=== PATIENT | male | born 1985 | race Caucasian/White ===

== ENCOUNTER 2017-09-18 12:48 | Inpatient (IN) | payer OTHER ==
[2017-09-18 13:28] VITALS: BMI 23.3
--- NOTE | 2017-09-18 14:30 | HP ---
COWS - Scale Resting Pulse: 0= [place] 80 or Below Sweatin= Chills/Flushing Restless Observation: 0= Sits Still Pupil Size: 0= Normal to Room Light Bone or Joint Aches: 1= Mild Discomfort Runny Nose/ Eye Tearin= Nasal Congestion GI Upset > 30mins: 1= Stomach Cramp Tremor Observation: 1= Tremor [place], Not Seen Yawning Observation: 1= 1-2x During Session Anxiety or Irritability: 1=Feels Anxious/Irritable Goose Flesh Skin: 0=Smooth Skin COWS Score: 7 CIWA Score - CIWA Score Nausea/Vomitin-Mild Nausea/No Vomiting Muscle Tremors: 4-Moderate,w/Arms Extend Anxiety: 4-Mod. Anxious/Guarded Agitation: 1-Slight > Activity Paroxysmal Sweats: 1-Minimal Palms Moist Orientation: 0-Oriented Tacttile Disturbances: 1-Very Mild Itch/Numbness Auditory Disturbances: 1-Very Mild Visual Disturbances: 1-Very Mild Sensitivity Headache: 3-Moderate CIWA-Ar Total Score: 17 Admission ROS BHS - HPI Chief Complaint: I'm done, I need this so bad, I need help Allergies/Adverse Reactions: Allergies Allergy/AdvReac Type Severity Reaction Status Date / Time No Known Allergies Allergy Verified 02/18/16 15:22 History of Present Illness: 31 yo gentleman here for detox from heroin, xanax, alchol - also using cocaine. Last detox 3 months ago in [facility] - last time here for detox January 2016 - never on methadone or suboxone ([facility] checked). No seizures, no overdose history. Exam Limitations: Clinical Condition - Ebola screening Have you traveled outside of the country in the last 21 days: No Have you had contact with anyone from an Ebola affected area: No Have you been sick,other than usual withdrawal symptoms: No Do you have a fever: No - Review of Systems Constitutional: Chills, Loss of Appetite, Malaise, Changes in sleep, Unintentional Wgt. Loss EENT: reports: Blurred Vision, Nose Congestion Respiratory: reports: No Symptoms reported Cardiac: reports: No Symptoms Reported GI: reports: Poor Appetite : reports: Frequency Musculoskeletal: reports: Back Pain, Muscle Pain Neuro: reports: Headache Endocrine: reports: No Symptoms Reported Hematology: reports: No Symptoms Reported Psychiatric: reports: Judgement Intact, Mood/Affect Appropiate, Orientated x3, Anxious Other Systems: Reviewed and Negative Patient History - Patient Medical History Hx Anemia: No Hx Asthma: No Hx Chronic Obstructive Pulmonary Disease (COPD): No Hx Cancer: No Hx Cardiac Disorders: No Hx Congestive Heart Failure: No Hx Hypertension: No Hx Hypercholesterolemia: No Hx Pacemaker: No HX Cerebrovascular Accident: No Hx Seizures: No Hx Dementia: No Hx Diabetes: No Hx Gastrointestinal Disorders: No Hx Liver Disease: No Hx Genitourinary Disorders: No Hx Sexually Transmitted Disorders: No Hx Renal Disease (ESRD): No Hx Thyroid Disease: No Hx Human Immunodeficiency Virus (HIV): No (2014 NEGATIVE) Hx Hepatitis C: Yes (2014 TREATED X 8 WEEKS, ) Hx Depression: No Hx Suicide Attempt: No Hx Bipolar Disorder: No Hx Schizophrenia: No - Patient Surgical History Past Surgical History: Yes Hx Neurologic Surgery: No Hx Cataract Extraction: No Hx Cardiac Surgery: No Hx Lung Surgery: No Hx Breast Surgery: No Hx Breast Biopsy: No Hx Abdominal Surgery: No Hx Appendectomy: No Hx Cholecystectomy: No Hx Genitourinary Surgery: No Hx Orthopedic Surgery: No Other Surgical History: partial amputation, left middle finger in 08/2015 Anesthesia Reaction: No - PPD History Previous Implant?: Yes Documented Results: Negative w/o proof Date: 02/20/16 PPD to be Administered?: Yes - Reproductive History Patient is a Female of Child Bearing Age (11 -55 yrs old): No (male) - Smoking Cessation Smoking history: Current every day smoker Have you smoked in the past 12 months: Yes Aproximately how many cigarettes per day: 20 Hx Chewing Tobacco Use: No Initiated information on smoking cessation: Yes 'Breaking Loose' booklet given: 09/18/17 (give on floor) - Substance & Tx. History Hx Alcohol Use: Yes Hx Substance Use: Yes Substance Use Type: Alcohol, Cocaine, Heroin Hx Substance Use Treatment: Yes - Substances Abused Alprazolam (Xanax) Route: Oral Frequency: Daily Amount used: 2mg Age of first use: 16 Date of Last Use: 09/17/17 Heroin Route: Injection Frequency: Daily Amount used: three bundles Age of first use: 28 Date of Last Use: 09/18/17 Alcohol Route: Oral Frequency: Daily Amount used: six pack 24oz beer Age of first use: 15 Date of Last Use: 09/17/17 Cocaine Route: Injection Frequency: Daily Amount used: 3 bags Age of first use: 15 Date of Last Use: 09/18/17 Family Disease History - Family Disease History Family Disease History: Other: Father (living, CRACK, etoh), Mother (living), Brother (one - healthy), Son (one - healthy), Daughter (one - healthy) Admission Physical Exam [facility] - Vital Signs Vital Signs: Vital Signs - 24 hr 09/18/17 12:57 Temperature 97.1 F L Pulse Rate 67 Respiratory 20 Rate Blood Pressure 104/65 - Physical General Appearance: Yes: Nourished, Appropriately Dressed, Mild Distress, Anxious HEENTM: Yes: Hearing grossly Normal, Normal ENT Inspection, Normocephalic, Normal Voice, Pharynx Normal Respiratory: Yes: Normal Breath Sounds, No Respiratory Distress Neck: Yes: No masses,lesions,Nodules, Supple Breast: Yes: Breast Exam Deferred Cardiology: Yes: Regular Rhythm, Regular Rate Abdominal: Yes: Flat Genitourinary: Yes: Frequency Back: Yes: Normal Inspection Musculoskeletal: Yes: full range of Motion, Gait Steady Extremities: Yes: Normal Inspection, Non-Tender Neurological: Yes: Fully Oriented, Normal Mood/Affect, Normal Response Integumentary: Yes: Normal Color, Warm, Track Tena (left fore-arm with erythematous area - flat, nontender, no fluctuance - states he 'missed') Lymphatic: Yes: Within Normal Limits Cleared for Admission [facility] - Detox or Rehab [facility] Level of Care: Medically Managed Detox Regimen/Protocol: Methadone/Valium [facility] Breath Alcohol Content Breath Alcohol Content: 0 Urine Drug Screen - Results Drug Screen Negative: No Urine Drug Screen Results: CHARAN-Cocaine, OPI-Opiates, MDMA-Ecstasy, BZO- Benzodiazepines, MTD-Methadone
[2017-09-18] MEDS ORDERED: NICOTINE POLACRILEX 4 MG GUM BUC PRN (14:35)
[2017-09-18] MEDS ORDERED: guaiFENesin/D-METHORPHAN HB 10 ML UNIT-DOSE CUPS PO PRN (14:35)
[2017-09-18] MEDS ORDERED: MAGNESIUM CITRATE 300 ML BOTTLE PO PRN (14:35)
[2017-09-18] MEDS ORDERED: IBUPROFEN 400 MG TABLET (FP) PO PRN (14:35)
[2017-09-18] MEDS ORDERED: ACETAMINOPHEN 325 MG TABLET (FP) PO PRN (14:35)
[2017-09-18] MEDS ORDERED: P-EPHED 60MG/TRIPROLIDI 2.5MG TABLET PO PRN (14:35)
[2017-09-18] MEDS ORDERED: LOPERAMIDE HCL 2 MG CAPSULE PO PRN (14:35)
[2017-09-18] MEDS ORDERED: MAGNESIUM HYDROX 2400MG/30ML ORAL SUSPENSION 30 ML CUP PO PRN (14:35)
[2017-09-18] MEDS ORDERED: MENTHOL/PHENOL 1 EACH UD MM PRN (14:35)
[2017-09-18] MEDS ORDERED: METHADONE HCL 10 MG TABLET (FOR DETOX USE ONLY) PO ONE ×2 (15:15→23:00)
[2017-09-18] MEDS ORDERED: diazePAM 5 MG TABLET PO ONE (15:15)
[2017-09-18] MEDS: NICOTINE 21 MG/24 HOURS TOPICAL PATCH TD SCH (16:07)
[2017-09-18 19:47] LABS: URINE APPEARANCE CLEAR; URINE BILIRUBIN NEGATIVE (NEGATIVE); URINE BLOOD NEGATIVE (NEGATIVE); URINE COLOR YELLOW; URINE GLUCOSE (UA) NEGATIVE (NEGATIVE); URINE KETONE NEGATIVE (NEGATIVE); URINE NITRITE NEGATIVE (NEGATIVE); URINE PROTEIN NEGATIVE (NEGATIVE); URINE UROBILINOGEN NEGATIVE mg/dL (0.2-1.0)
[2017-09-18 21:48] LABS: URINE LEUK ESTERASE Negative (NEGATIVE)
[2017-09-18] MEDS: diazePAM 5 MG TABLET PO SCH (22:11)
[2017-09-18] MEDS: THIAMINE HCL 100 MG TABLET (FP) PO SCH (22:11)
[2017-09-19] MEDS: diazePAM 5 MG TABLET PO PRN ×3 (03:41→17:12)
[2017-09-19] MEDS: MAG HYDROX/AL HYDROX/SIMETH 30 ML UNIT-DOSE CUP PO PRN ×2 (03:43→17:14)
[2017-09-19] MEDS: diazePAM 5 MG TABLET PO SCH ×3 (06:16→22:09)
[2017-09-19] MEDS ORDERED: ONDANSETRON *ODT* 4 MG TABLET SL ONE (09:37)
--- NOTE | 2017-09-19 09:43 | PN ---
BHS COWS - Scale Resting Pulse: 1= [place] 81-100 Sweatin=Flushed/Facial Moisture Restless Observation: 1= Difficult to Sit Still Pupil Size: 0= Normal to Room Light Bone or Joint Aches: 2= Severe Diffuse Aches Runny Nose/ Eye Tearin= Runny Nose/Eyes GI Upset > 30mins: 2= Nausea/Diarrhea Tremor Observation of Outstretched Hands: 2= Slight Tremor Visible Yawning Observation: 1= 1-2x During Session Anxiety or Irritability: 2=Irritable/Anxious Goose Flesh Skin: 0=Smooth Skin COWS Score: 15 BHS Progress Note (SOAP) Subjective: Anxiety,nausea,sweating,interrupted sleep,restless. Objective: 09/19/17 09:42 Vital Signs - 8 hr 09/19/17 09/19/17 06:00 09:35 Temperature 97.9 F 97.1 F L Pulse Rate 70 91 H Respiratory 18 18 Rate Blood Pressure 103/62 111/74 Laboratory Tests 09/18/17 16:00 Urine Color Yellow Urine Appearance Clear Urine pH 5.0 Ur Specific [place] 1.029 Urine Protein Negative Urine Glucose (UA) Negative Urine Ketones Negative Urine Blood Negative Urine Nitrite Negative Urine Bilirubin Negative Urine Urobilinogen Negative Ur Leukocyte Esterase Negative Assessment: 09/19/17 09:42 Withdrawal sx. Plan: Continue detox Zofran
[2017-09-19] MEDS ORDERED: ONDANSETRON *ODT* 4 MG TABLET SL PRN (09:47)
[2017-09-19] MEDS ORDERED: METHADONE HCL 10 MG TABLET (FOR DETOX USE ONLY) PO SCH (10:00)
[2017-09-19 10:28] LABS: MCH 26.2 pg (25.7-33.7); MCHC 32.6 g/dl (32.0-35.9); MEAN CELL VOLUME 80.1 fl (80-96); MEAN PLT VOLUME 9.2 fl (7.5-11.1); PLATELET COUNT 177 K/MM3 (134-434)
[2017-09-19] MEDS: PRENATAL VITAMINS W/ FOLIC ACID TABLET (FP) PO SCH (10:39)
[2017-09-19] MEDS: NICOTINE 21 MG/24 HOURS TOPICAL PATCH TD SCH (10:39)
[2017-09-19 10:41] LABS: ALBUMIN 3.4 g/dl (3.4-5.0); ANION GAP 6 (8-16); CALCIUM 8.6 mg/dL (8.5-10.1); CO2 28 mmol/L (21-32); GLUCOSE,RANDOM 86 mg/dL (74-106)
[2017-09-19 10:44] LABS: ALK PHOS 73 U/L (45-117); BILIRUBIN,TOTAL 0.6 mg/dL (0.2-1.0); SGOT/AST 72 U/L (15-37); SGPT/ALT 119 U/L (12-78); TOT PROT 7.2 g/dl (6.4-8.2)
[2017-09-19] MEDS: hydrOXYzine PAMOATE 50 MG CAPSULE (FP) PO PRN (22:09)
[2017-09-19] MEDS: THIAMINE HCL 100 MG TABLET (FP) PO SCH (22:09)
--- NOTE | 2017-09-20 09:41 | EKG ---
Test Reason : Blood Pressure : / mmHG Vent. Rate : 061 BPM Atrial Rate : 061 BPM P-R Int : 128 ms QRS Dur : 084 ms QT Int : 414 ms P-R-T Axes : 044 075 040 degrees QTc Int : 416 ms NORMAL SINUS RHYTHM WITH SINUS ARRHYTHMIA NORMAL ECG NO PREVIOUS ECGS AVAILABLE Confirmed by EB VO, KIN ([id number]) on 09/20/2017 9:41:22 AM Referred By: Confirmed By:KIN PARSON MD
[2017-09-20] MEDS ORDERED: METHADONE HCL 5 MG TABLET (FOR DETOX USE ONLY) PO SCH (10:00)
[2017-09-20] MEDS: PRENATAL VITAMINS W/ FOLIC ACID TABLET (FP) PO SCH (10:22)
[2017-09-20] MEDS: diazePAM 5 MG TABLET PO SCH ×2 (10:22→22:09)
[2017-09-20] MEDS: NICOTINE 21 MG/24 HOURS TOPICAL PATCH TD SCH (10:23)
--- NOTE | 2017-09-20 10:34 | PN ---
[facility] CIWA - CIWA Score Nausea/Vomitin Muscle Tremors: 3 Anxiety: 3 Agitation: 2 Paroxysmal Sweats: 1-Minimal Palms Moist Orientation: 1-Uncertain about Date Tacttile Disturbances: 1-Very Mild Itch/Numbness Auditory Disturbances: 1-Very Mild Visual Disturbances: 0-None Headache: 2-Mild CIWA-Ar Total Score: 17 BHS COWS - Scale Resting Pulse: 2= [place] 101-120 Sweatin= Chills/Flushing Restless Observation: 3= Extraneous Movement Pupil Size: 1= Pupils >than Normal Bone or Joint Aches: 2= Severe Diffuse Aches Runny Nose/ Eye Tearin= Runny Nose/Eyes GI Upset > 30mins: 2= Nausea/Diarrhea Tremor Observation of Outstretched Hands: 2= Slight Tremor Visible Yawning Observation: 1= 1-2x During Session Anxiety or Irritability: 2=Irritable/Anxious Goose Flesh Skin: 0=Smooth Skin COWS Score: 18 [facility] Progress Note (SOAP) Subjective: alert,irritable,anxious,interrupted sleep,tremor,pain in the body and back Objective: 09/20/17 10:31 Vital Signs Temperature 96.7 F L 09/20/17 06:06 Pulse Rate 64 09/20/17 06:06 Respiratory Rate 16 09/20/17 06:06 Blood Pressure 117/62 09/20/17 06:06 O2 Sat by Pulse Oximetry (%) ekg nsr with sinus arrhythmia Laboratory Last Values WBC 6.0 K/mm3 (4.0-10.0) D 09/19/17 07:15 RBC 4.79 M/mm3 (4.00-5.60) 09/19/17 07:15 Hgb 12.5 GM/dL (11.7-16.9) 09/19/17 07:15 Hct 38.3 % (35.4-49) 09/19/17 07:15 MCV 80.1 fl (80-96) 09/19/17 07:15 MCH 26.2 pg (25.7-33.7) 09/19/17 07:15 MCHC 32.6 g/dl (32.0-35.9) 09/19/17 07:15 RDW 15.0 % (11.9-15.9) D 09/19/17 07:15 Plt Count 177 K/MM3 (134-434) D 09/19/17 07:15 MPV 9.2 fl (7.5-11.1) 09/19/17 07:15 Sodium 139 mmol/L (136-145) 09/19/17 07:15 Potassium 4.1 mmol/L (3.5-5.1) 09/19/17 07:15 Chloride 105 mmol/L (98-107) 09/19/17 07:15 Carbon Dioxide 28 mmol/L (21-32) 09/19/17 07:15 Anion Gap 6 (8-16) L 09/19/17 07:15 BUN 17 mg/dL (7-18) 09/19/17 07:15 Creatinine 1.0 mg/dL (0.7-1.3) 09/19/17 07:15 Creat Clearance w eGFR > 60 (>60) 09/19/17 07:15 Random Glucose 86 mg/dL (74-106) 09/19/17 07:15 Calcium 8.6 mg/dL (8.5-10.1) 09/19/17 07:15 Total Bilirubin 0.6 mg/dL (0.2-1.0) D 09/19/17 07:15 AST 72 U/L (15-37) H D 09/19/17 07:15 ALT 119 U/L (12-78) H D 09/19/17 07:15 Alkaline Phosphatase 73 U/L (45-117) 09/19/17 07:15 Total Protein 7.2 g/dl (6.4-8.2) 09/19/17 07:15 Albumin 3.4 g/dl (3.4-5.0) 09/19/17 07:15 Urine Color Yellow 09/18/17 16:00 Urine Appearance Clear 09/18/17 16:00 Urine pH 5.0 (5.0-8.0) 09/18/17 16:00 Ur Specific [place] 1.029 (1.001-1.035) 09/18/17 16:00 Urine Protein Negative (NEGATIVE) 09/18/17 16:00 Urine Glucose (UA) Negative (NEGATIVE) 09/18/17 16:00 Urine Ketones Negative (NEGATIVE) 09/18/17 16:00 Urine Blood Negative (NEGATIVE) 09/18/17 16:00 Urine Nitrite Negative (NEGATIVE) 09/18/17 16:00 Urine Bilirubin Negative (NEGATIVE) 09/18/17 16:00 Urine Urobilinogen Negative mg/dL (0.2-1.0) 09/18/17 16:00 Ur Leukocyte Esterase Negative (NEGATIVE) 09/18/17 16:00 RPR Titer Nonreactive (NONREACTIVE) 09/19/17 07:15 Assessment: 09/20/17 10:33 withdrawal symptom Plan: continue detox,d/c tylenol due to elevation of ast,alt
[2017-09-20] MEDS: diazePAM 5 MG TABLET PO PRN ×2 (14:10→18:08)
--- NOTE | 2017-09-20 14:13 | CONSULT ---
[facility] Psychiatric Consult - Data Date of interview: 09/20/17 Admission source: [facility] Identifying data: This is 31 years old male with no psychiatric hospitalization history intoxicated with: Alcohol, Cocaine, Xanax, Heroin and Nicotine Substance Abuse History: - Smoking Cessation. Smoking history: Current every day smoker. Have you smoked in the past 12 months: Yes. Aproximately how many cigarettes per day: 20. Hx Chewing Tobacco Use: No. Initiated information on smoking cessation: Yes. 'Breaking Loose' booklet given: 09/18/17 (give on floor ). - Substance & Tx. History. Hx Alcohol Use: Yes. Hx Substance Use: Yes. Substance Use Type: Alcohol, Cocaine, Heroin. Hx Substance Use Treatment: Yes. - Substances Abused. Alprazolam (Xanax). Route: Oral. Frequency: Daily. Amount used: 2mg. Age of first use: 16. Date of Last Use: 09/17/17. Heroin. Route: Injection. Frequency: Daily. Amount used: three bundles. Age of first use: 28. Date of Last Use: 09/18/17. Alcohol. Route: Oral. Frequency: Daily. Amount used: six pack 24oz beer. Age of first use: 15. Date of Last Use: 09/17/17. Cocaine. Route: Injection. Frequency: Daily. Amount used: 3 bags. Age of first use: 15. Date of Last Use: 09/18/17 Medical History: Denies ish significant medical issues. HepC+ Psychiatric History: Denies past psychiatric history Physical/Sexual Abuse/Trauma History: Denies Additional Comment: Observation. Detox unit care protocol Mental Status Exam - Mental Status Exam Alert and Oriented to: Person Cognitive Function: Fair Patient Appearance: Unkempt Mood: Euthymic Affect: Inappropriate Patient Behavior: Sedated Speech Pattern: Delayed Voice Loudness: Mildly Soft/Quiet Thought Process: Goal Oriented Thought Disorder: Being Controlled Hallucinations: Denies Suicidal Ideation: Denies Homicidal Ideation: Denies Insight/Judgement: Fair Sleep: Poorly Appetite: Weight loss Muscle strength/Tone: Mild Hypotonicity Gait/Station: Normal Additional Comments: Observation. Detox unit care protocol Psychiatric Findings - Problem List ([place] 1, 2,3) (1) Drug-induced mood disorder Current Visit: Yes Status: Acute (2) Opioid dependence with withdrawal Current Visit: Yes Status: Acute (3) Sedative, hypnotic or anxiolytic dependence with withdrawal, uncomplicated Current Visit: Yes Status: Acute (4) Alcohol dependence with uncomplicated withdrawal Current Visit: Yes Status: Chronic (5) Heroin dependence Current Visit: Yes Status: Chronic (6) Xanax use disorder, moderate, dependence Current Visit: Yes Status: Chronic (7) Cocaine dependence Current Visit: No Status: Chronic Qualifiers: Substance use status: uncomplicated Qualified Code(s): F14.20 - Cocaine dependence, uncomplicated (8) Nicotine dependence Current Visit: No Status: Chronic Qualifiers: Nicotine product type: cigarettes Substance use status: uncomplicated Qualified Code(s): F17.210 - Nicotine dependence, cigarettes, uncomplicated - Initial Treatment Plan Initial Treatment Plan: Observation. Detox unit care protocol
[2017-09-20] MEDS: hydrOXYzine PAMOATE 50 MG CAPSULE (FP) PO PRN (22:09)
[2017-09-20] MEDS: THIAMINE HCL 100 MG TABLET (FP) PO SCH (22:09)
[2017-09-21 06:29] VITALS: BP 92/50; PULSE 70; TEMP 98.1
[2017-09-21] MEDS: diazePAM 5 MG TABLET PO PRN (06:38)
--- NOTE | 2017-09-21 08:35 | PN ---
BHS Progress Note (SOAP) Subjective: alert,irritable,anxious,interrupted sleep,pain in the body Objective: 09/21/17 08:34 Vital Signs Temperature 98.1 F 09/21/17 06:28 Pulse Rate 70 09/21/17 06:28 Respiratory Rate 18 09/21/17 06:28 Blood Pressure 92/50 09/21/17 06:28 O2 Sat by Pulse Oximetry (%) 09/21/17 08:34 Laboratory Last Values WBC 6.0 K/mm3 (4.0-10.0) D 09/19/17 07:15 RBC 4.79 M/mm3 (4.00-5.60) 09/19/17 07:15 Hgb 12.5 GM/dL (11.7-16.9) 09/19/17 07:15 Hct 38.3 % (35.4-49) 09/19/17 07:15 MCV 80.1 fl (80-96) 09/19/17 07:15 MCH 26.2 pg (25.7-33.7) 09/19/17 07:15 MCHC 32.6 g/dl (32.0-35.9) 09/19/17 07:15 RDW 15.0 % (11.9-15.9) D 09/19/17 07:15 Plt Count 177 K/MM3 (134-434) D 09/19/17 07:15 MPV 9.2 fl (7.5-11.1) 09/19/17 07:15 Sodium 139 mmol/L (136-145) 09/19/17 07:15 Potassium 4.1 mmol/L (3.5-5.1) 09/19/17 07:15 Chloride 105 mmol/L (98-107) 09/19/17 07:15 Carbon Dioxide 28 mmol/L (21-32) 09/19/17 07:15 Anion Gap 6 (8-16) L 09/19/17 07:15 BUN 17 mg/dL (7-18) 09/19/17 07:15 Creatinine 1.0 mg/dL (0.7-1.3) 09/19/17 07:15 Creat Clearance w eGFR > 60 (>60) 09/19/17 07:15 Random Glucose 86 mg/dL (74-106) 09/19/17 07:15 Calcium 8.6 mg/dL (8.5-10.1) 09/19/17 07:15 Total Bilirubin 0.6 mg/dL (0.2-1.0) D 09/19/17 07:15 AST 72 U/L (15-37) H D 09/19/17 07:15 ALT 119 U/L (12-78) H D 09/19/17 07:15 Alkaline Phosphatase 73 U/L (45-117) 09/19/17 07:15 Total Protein 7.2 g/dl (6.4-8.2) 09/19/17 07:15 Albumin 3.4 g/dl (3.4-5.0) 09/19/17 07:15 Urine Color Yellow 09/18/17 16:00 Urine Appearance Clear 09/18/17 16:00 Urine pH 5.0 (5.0-8.0) 09/18/17 16:00 Ur Specific [place] 1.029 (1.001-1.035) 09/18/17 16:00 Urine Protein Negative (NEGATIVE) 09/18/17 16:00 Urine Glucose (UA) Negative (NEGATIVE) 09/18/17 16:00 Urine Ketones Negative (NEGATIVE) 09/18/17 16:00 Urine Blood Negative (NEGATIVE) 09/18/17 16:00 Urine Nitrite Negative (NEGATIVE) 09/18/17 16:00 Urine Bilirubin Negative (NEGATIVE) 09/18/17 16:00 Urine Urobilinogen Negative mg/dL (0.2-1.0) 09/18/17 16:00 Ur Leukocyte Esterase Negative (NEGATIVE) 09/18/17 16:00 RPR Titer Nonreactive (NONREACTIVE) 09/19/17 07:15 Assessment: 09/21/17 08:35 withdrawal symptom Plan: continue detox
--- NOTE | 2017-09-21 08:37 | PN ---
S Progress Note Note: patient did not want to complete treatment,signed release ama,seen by counselor
--- NOTE | 2017-09-21 08:38 | DS ---
[facility] Detox Discharge Summary Admission Date: 09/18/17 Discharge Date: 09/21/17 - History Present History: Alcohol Dependence, Cocaine Dependence, Opioid Dependence, Sedative Dependence Additional Comments: patient did not want to complete treatment,signed release ama,seen by counselor, did not want to wait - Physical Exam Results Vital Signs: Vital Signs Temperature 98.1 F 09/21/17 06:28 Pulse Rate 70 09/21/17 06:28 Respiratory Rate 18 09/21/17 06:28 Blood Pressure 92/50 09/21/17 06:28 O2 Sat by Pulse Oximetry (%) Pertinent Admission Physical Exam Findings: withdrawal symptom - Medication Discharge Medications: Ambulatory Orders NK [No Known Home Medication] 02/18/16 - Diagnosis (1) Opioid dependence with withdrawal Current Visit: Yes Status: Acute (2) Sedative, hypnotic or anxiolytic dependence with withdrawal, uncomplicated Current Visit: Yes Status: Acute (3) Alcohol dependence with uncomplicated withdrawal Current Visit: Yes Status: Chronic (4) Cocaine dependence Current Visit: No Status: Chronic Qualifiers: Substance use status: uncomplicated Qualified Code(s): F14.20 - Cocaine dependence, uncomplicated (5) Drug-induced mood disorder Current Visit: Yes Status: Acute - AMA Did Patient Leave Against Medical Advice: Yes
[2017-09-22] MEDS ORDERED: diazePAM 5 MG TABLET PO SCH (10:00)
[2017-09-22] MEDS ORDERED: METHADONE HCL 10 MG TABLET (FOR DETOX USE ONLY) PO SCH (10:00)
[2017-09-23] MEDS ORDERED: METHADONE HCL 5 MG TABLET (FOR DETOX USE ONLY) PO SCH (06:00)
== END 2017-09-21 09:00 | disposition left against medical advice (07) | DRG 770 ==
LOC: YASAS 12:48 → Y6N 14:56
PROVIDERS: ADMIT Internal Medicine; ATTEND Internal Medicine
PROC: HZ2ZZZZ Detoxification Services for Substance Abuse Treatment (ICD-10-PCS; principal; 2017-09-18)
DX: F11.23 Opioid dependence with withdrawal (principal); F10.230 Alcohol dependence with withdrawal, uncomplicated; F14.20 Cocaine dependence, uncomplicated; F19.24 Other psychoactive substance dependence with psychoactive substance-induced mood disorder; F17.210 Nicotine dependence, cigarettes, uncomplicated; Z59.0 Homelessness
CPT/HCPCS: 36415; 80053; 81003; 85027; 86593; 93005; 93010

== ENCOUNTER 2017-12-10 12:15 | Inpatient (IN) | payer OTHER ==
[2017-12-10 15:48] VITALS: BMI 24.0
--- NOTE | 2017-12-10 16:31 | HP ---
COWS - Scale Resting Pulse: 0= [place] 80 or Below Sweatin= Chills/Flushing Restless Observation: 1= Difficult to Sit Still Pupil Size: 1= Pupils >than Normal Bone or Joint Aches: 2= Severe Diffuse Aches Runny Nose/ Eye Tearin= Runny Nose/Eyes GI Upset > 30mins: 1= Stomach Cramp Tremor Observation: 1= Tremor [place], Not Seen Yawning Observation: 1= 1-2x During Session Anxiety or Irritability: 1=Feels Anxious/Irritable Goose Flesh Skin: 3=Piloerection COWS Score: 14 CIWA Score - CIWA Score Nausea/Vomitin-Mild Nausea/No Vomiting Muscle Tremors: 1-None Visible, but [place] Anxiety: 2 Agitation: 1-Slight > Activity Paroxysmal Sweats: 2 Orientation: 1-Uncertain about Date Tacttile Disturbances: 2-Mild Itch/Numbness/Burn Auditory Disturbances: 1-Very Mild Visual Disturbances: 1-Very Mild Sensitivity Headache: 3-Moderate CIWA-Ar Total Score: 15 Admission ROS S - HPI Chief Complaint: WITHDRAWAL SYMPTOMS Allergies/Adverse Reactions: Allergies Allergy/AdvReac Type Severity Reaction Status Date / Time No Known Allergies Allergy Verified 12/10/17 16:10 History of Present Illness: 31 Y.O. MAN WITH A HISTORY OF OPIOID AND ALCOHOL DEPENDENCE IS HERE SEEKING DETOX. HE REPORTS SHE WAS [facility] DETOX 3 WEEKS AGO BUT LEFT AMA. DOES NOT HAVE A SIGNIFICANT PERIOD CLEAN AND SOBER. Exam Limitations: No Limitations - Ebola screening Have you traveled outside of the country in the last 21 days: No (N) Have you had contact with anyone from an Ebola affected area: No Have you been sick,other than usual withdrawal symptoms: No Do you have a fever: No - Review of Systems Constitutional: Chills, Loss of Appetite, Changes in sleep, Unintentional Wgt. Loss EENT: reports: Tearing, Nose Congestion Respiratory: reports: No Symptoms reported Cardiac: reports: No Symptoms Reported GI: reports: Abdominal cramping : reports: No Symptoms Reported Musculoskeletal: reports: No Symptoms Reported Integumentary: reports: No Symptoms Reported Neuro: reports: Numbness Endocrine: reports: No Symptoms Reported Hematology: reports: Easy Bruising Psychiatric: reports: Judgement Intact, Mood/Affect Appropiate Other Systems: Reviewed and Negative Patient History - Patient Medical History Hx Anemia: No Hx Asthma: No Hx Chronic Obstructive Pulmonary Disease (COPD): No Hx Cancer: No Hx Cardiac Disorders: No Hx Congestive Heart Failure: No Hx Hypertension: No Hx Hypercholesterolemia: No Hx Pacemaker: No HX Cerebrovascular Accident: No Hx Seizures: No Hx Dementia: No Hx Diabetes: No Hx Gastrointestinal Disorders: No Hx Liver Disease: No Hx Genitourinary Disorders: No Hx Sexually Transmitted Disorders: No Hx Renal Disease (ESRD): No Hx Thyroid Disease: No Hx Human Immunodeficiency Virus (HIV): No (2014 NEGATIVE) Hx Hepatitis C: Yes (2014 TREATED X 8 WEEKS, ) Hx Depression: Yes Hx Suicide Attempt: No Hx Bipolar Disorder: No Hx Schizophrenia: No - Patient Surgical History Past Surgical History: Yes Hx Neurologic Surgery: No Hx Cataract Extraction: No Hx Cardiac Surgery: No Hx Lung Surgery: No Hx Breast Surgery: No Hx Breast Biopsy: No Hx Abdominal Surgery: No Hx Appendectomy: No Hx Cholecystectomy: No Hx Genitourinary Surgery: No Hx Orthopedic Surgery: No Other Surgical History: partial amputation, left middle finger in 08/2015 Anesthesia Reaction: No - PPD History Previous Implant?: Yes Documented Results: Negative w/o proof Implanted On Prior [facility] Admission?: Yes Date: 02/20/16 Results: 0 PPD to be Administered?: Yes - Reproductive History Patient is a Female of Child Bearing Age (11 -55 yrs old): No - Smoking Cessation Smoking history: Current every day smoker Have you smoked in the past 12 months: Yes Aproximately how many cigarettes per day: 10 Hx Chewing Tobacco Use: No Initiated information on smoking cessation: Yes 'Breaking Loose' booklet given: 12/10/17 - Substance & Tx. History Hx Alcohol Use: Yes Hx Substance Use: Yes Substance Use Type: Alcohol, Heroin - Substances Abused Heroin Route: Injection Frequency: Daily Amount used: 10 BAGS Age of first use: 28 Date of Last Use: 12/10/17 Cocaine Route: Injection Frequency: Daily Amount used: 10 BAGS Age of first use: 16 Date of Last Use: 12/08/17 Alprazolam (Xanax) Route: Oral Frequency: 3-6 times per week Amount used: 2MG Age of first use: 15 Date of Last Use: 12/07/17 Marijuana/Hashish Route: Smoking Frequency: Daily Amount used: 1 JOINT Age of first use: 15 Date of Last Use: 12/09/17 Alcohol Route: Oral Frequency: Daily Amount used: 6 PK Age of first use: 13 Date of Last Use: 12/09/17 Family Disease History - Family Disease History Family Disease History: Other: Father (living, CRACK, etoh), Mother (living), Brother (one - healthy), Son (one - healthy), Daughter (one - healthy) Admission Physical Exam [facility] - Vital Signs Vital Signs: Vital Signs - 24 hr 12/10/17 15:45 Temperature 97.7 F Pulse Rate 79 Respiratory 18 Rate Blood Pressure 100/64 - Physical General Appearance: Yes: Irritable, Anxious HEENTM: Yes: Hearing grossly Normal, Normocephalic, Normal Voice Respiratory: Yes: Chest Non-Tender, Lungs Clear, Normal Breath Sounds, No Respiratory Distress, No Accessory Muscle Use Neck: Yes: No masses,lesions,Nodules, Trachea in good position Breast: Yes: Breast Exam Deferred Cardiology: Yes: Regular Rhythm, Regular Rate Abdominal: Yes: Normal Bowel Sounds, Non Tender, Flat Genitourinary: Yes: Other (NO COMPLAINTS REPORTED) Back: Yes: Normal Inspection Extremities: Yes: Normal Capillary Refill, Normal Inspection, Normal Range of Motion, Non-Tender Neurological: Yes: airport clerk II-XII NML intact, Alert, Normal Mood/Affect, Normal Response Integumentary: Yes: Normal Color, Dry, Warm, Track Tena Lymphatic: Yes: Within Normal Limits - Diagnostic (1) Opioid dependence with withdrawal Current Visit: Yes Status: Chronic (2) Alcohol dependence with uncomplicated withdrawal Current Visit: Yes Status: Chronic (3) Cocaine dependence Current Visit: Yes Status: Chronic Qualifiers: Substance use status: uncomplicated Qualified Code(s): F14.20 - Cocaine dependence, uncomplicated (4) Hepatitis C carrier Current Visit: Yes Status: Chronic (5) Nicotine dependence Current Visit: Yes Status: Chronic Qualifiers: Nicotine product type: cigarettes Substance use status: uncomplicated Qualified Code(s): F17.210 - Nicotine dependence, cigarettes, uncomplicated (6) Sedative, hypnotic or anxiolytic dependence with withdrawal, uncomplicated Current Visit: Yes Status: Chronic Cleared for Admission [facility] - Detox or Rehab [facility] Level of Care: Medically Managed Detox Regimen/Protocol: Methadone/Valium S Breath Alcohol Content Breath Alcohol Content: 0 Urine Drug Screen - Results Drug Screen Negative: No Urine Drug Screen Results: THC-Marijuana, CHARAN-Cocaine, OPI-Opiates, TCA- Tricyclic Antidepress
[2017-12-10] MEDS ORDERED: MAG HYDROX/AL HYDROX/SIMETH 30 ML UNIT-DOSE CUP PO PRN (16:45)
[2017-12-10] MEDS ORDERED: LOPERAMIDE HCL 2 MG CAPSULE PO PRN (16:45)
[2017-12-10] MEDS ORDERED: P-EPHED 60MG/TRIPROLIDI 2.5MG TABLET PO PRN (16:45)
[2017-12-10] MEDS ORDERED: ACETAMINOPHEN 325 MG TABLET (FP) PO PRN (16:45)
[2017-12-10] MEDS ORDERED: guaiFENesin/D-METHORPHAN HB 10 ML UNIT-DOSE CUPS PO PRN (16:45)
[2017-12-10] MEDS ORDERED: MENTHOL/PHENOL 1 EACH UD MM PRN (16:45)
[2017-12-10] MEDS ORDERED: MAGNESIUM CITRATE 300 ML BOTTLE PO PRN (16:45)
[2017-12-10] MEDS ORDERED: hydrOXYzine PAMOATE 50 MG CAPSULE (FP) PO PRN (16:45)
[2017-12-10] MEDS ORDERED: MAGNESIUM HYDROX 2400MG/30ML ORAL SUSPENSION 30 ML CUP PO PRN (16:45)
[2017-12-10] MEDS ORDERED: IBUPROFEN 400 MG TABLET (FP) PO PRN (16:45)
[2017-12-10] MEDS ORDERED: diazePAM 5 MG TABLET PO ONE (18:45)
[2017-12-10] MEDS ORDERED: METHADONE HCL 10 MG TABLET (FOR DETOX USE ONLY) PO ONE ×2 (18:45→23:00)
[2017-12-10] MEDS: THIAMINE HCL 100 MG TABLET (FP) PO SCH (22:27)
[2017-12-10] MEDS: diazePAM 5 MG TABLET PO SCH (22:27)
[2017-12-10 22:33] LABS: URINE APPEARANCE CLEAR; URINE BILIRUBIN NEGATIVE (NEGATIVE); URINE BLOOD NEGATIVE (NEGATIVE); URINE COLOR YELLOW; URINE GLUCOSE (UA) NEGATIVE (NEGATIVE); URINE KETONE NEGATIVE (NEGATIVE); URINE LEUK ESTERASE NEGATIVE (NEGATIVE); URINE NITRITE NEGATIVE (NEGATIVE); URINE PROTEIN NEGATIVE (NEGATIVE); URINE UROBILINOGEN NEGATIVE mg/dL (0.2-1.0)
[2017-12-11] MEDS: diazePAM 5 MG TABLET PO SCH ×3 (06:02→22:44)
[2017-12-11] MEDS ORDERED: METHADONE HCL 10 MG TABLET (FOR DETOX USE ONLY) PO SCH (10:00)
[2017-12-11] MEDS: PRENATAL VITAMINS W/ FOLIC ACID TABLET (FP) PO SCH (10:26)
[2017-12-11] MEDS: diazePAM 5 MG TABLET PO PRN ×2 (10:26→17:08)
[2017-12-11 10:38] LABS: HEMATOCRIT 44.3 % (35.4-49); HEMOGLOBIN 14.6 GM/dL (11.7-16.9); MCH 27.2 pg (25.7-33.7); MEAN CELL VOLUME 82.6 fl (80-96); MEAN PLT VOLUME 9.7 fl (7.5-11.1); PLATELET COUNT 188 K/MM3 (134-434); RBC 5.36 M/mm3 (4.00-5.60); RDW 15.9 % (11.9-15.9); WHITE BLOOD COUNT 5.4 K/mm3 (4.0-10.0)
[2017-12-11 10:49] LABS: ALBUMIN 4.2 g/dl (3.4-5.0); ANION GAP 4 (8-16); BILIRUBIN,TOTAL 0.6 mg/dL (0.2-1.0); BLOOD UREA NITROGEN 15 mg/dL (7-18); CALCIUM 9.4 mg/dL (8.5-10.1); CHLORIDE 100 mmol/L (98-107); CO2 32 mmol/L (21-32); CREATININE 1.1 mg/dL (0.7-1.3); GLUCOSE,RANDOM 80 mg/dL (74-106); POTASSIUM 4.4 mmol/L (3.5-5.1); SGOT/AST 74 U/L (15-37); SGPT/ALT 138 U/L (12-78); SODIUM 136 mmol/L (136-145); TOT PROT 7.9 g/dl (6.4-8.2)
[2017-12-11 10:50] LABS: ALK PHOS 85 U/L (45-117)
--- NOTE | 2017-12-11 12:46 | CONSULT ---
[facility] Psychiatric Consult - Data Date of interview: 12/11/17 Admission source: [facility] Identifying data: Readmission to [facility] for this 31 y/o male seeking detox treatment on for heroin,cocaine,cannabis and xanax dependence.Patient is single,a father of two,homeless,unemployed and reportedly deprived of income. Substance Abuse History: Discussed with patient in this session.Addictions confirmed as detailed in currenbt [facility] report . Smoking history: Current every day smoker. Have you smoked in the past 12 months: Yes. Aproximately how many cigarettes per day: 10. Hx Chewing Tobacco Use: No. Initiated information on smoking cessation: Yes. 'Breaking Loose' booklet given: 12/10/17. - Substance & Tx. History. Hx Alcohol Use: Yes. Hx Substance Use: Yes. Substance Use Type : Alcohol, Heroin. - Substances Abused. Heroin. Route: Injection. Frequency: Daily. Amount used: 10 BAGS. Age of first use: 28. Date of Last Use: 12/10/17. Cocaine. Route: Injection. Frequency: Daily. Amount used: 10 BAGS. Age of first use: 16. Date of Last Use: 12/08/17. Alprazolam ( Xanax). Route: Oral. Frequency: 3-6 times per week. Amount used: 2MG. Age of first use: 15. Date of Last Use: 12/07/17. Marijuana/Hashish. Route: Smoking. Frequency: Daily. Amount used: 1 JOINT. Age of first use: 15. Date of Last Use: 12/09/17. Alcohol. Route: Oral. Frequency: Daily. Amount used: 6 PK. Age of first use: 13. Date of Last Use: 12/09/17 Medical History: Hepatitis C and a history of surgery in 2015 (partial amputation of left third finger). Psychiatric History: Patient denies history of mental illness or psychiatric hospitalizations.No reported history of psychiatric OPD care.Remote history of overdose with " pills ".Never followed up. Physical/Sexual Abuse/Trauma History: Patient denies. Additional Comment: Urine Drug Screen Results: THC-Marijuana, CHARAN-Cocaine, OPI- Opiates, TCA-Tricyclic Antidepressant.Noted. Mental Status Exam - Mental Status Exam Alert and Oriented to: Time, Place, Person Cognitive Function: Good Patient Appearance: Well Groomed Mood: Anxious, Hopeful Affect: Mood Congruent Patient Behavior: Fatigued, Appropriate, Cooperative Speech Pattern: Clear, Appropriate Voice Loudness: Normal Thought Process: Intact, Goal Oriented Thought Disorder: Not Present Hallucinations: Denies Suicidal Ideation: Denies Homicidal Ideation: Denies Insight/Judgement: Poor Sleep: Well Appetite: Good Muscle strength/Tone: Normal Gait/Station: Normal Psychiatric Findings - Problem List ([place] 1, 2,3) (1) Alcohol dependence with uncomplicated withdrawal Current Visit: Yes Status: Acute (2) Cocaine dependence Current Visit: Yes Status: Acute Qualifiers: Substance use status: uncomplicated Qualified Code(s): F14.20 - Cocaine dependence, uncomplicated (3) Opioid dependence with withdrawal Current Visit: Yes Status: Acute (4) Sedative, hypnotic or anxiolytic dependence with withdrawal, uncomplicated Current Visit: Yes Status: Acute (5) Nicotine dependence Current Visit: Yes Status: Acute (6) Drug-induced mood disorder Current Visit: Yes Status: Acute - Initial Treatment Plan Initial Treatment Plan: Psychoeducation.Detoxification in progress.Patient is encouraged to attend daily group therapy sessions,community meetings and recreational activities on unit.He agrees.Observation.
[2017-12-11 13:59] LABS: RPR NONREACTIVE (NONREACTIVE)
--- NOTE | 2017-12-11 16:01 | EKG ---
Test Reason : Blood Pressure : / mmHG Vent. Rate : 060 BPM Atrial Rate : 060 BPM P-R Int : 126 ms QRS Dur : 094 ms QT Int : 404 ms P-R-T Axes : 054 081 056 degrees QTc Int : 404 ms NORMAL SINUS RHYTHM NORMAL ECG WHEN COMPARED WITH ECG OF 18-SEP-2017 16:11, NO SIGNIFICANT CHANGE WAS FOUND Confirmed by KIN PARSON MD ([id number]) on 12/11/2017 4:01:06 PM Referred By: Confirmed By:KIN PARSON MD
--- NOTE | 2017-12-11 17:29 | PN ---
[facility] CIWA - CIWA Score Nausea/Vomitin-Mild Nausea/No Vomiting Muscle Tremors: 3 Anxiety: 4-Mod. Anxious/Guarded Agitation: 4-Moderately Restless Paroxysmal Sweats: 3 Orientation: 0-Oriented Tacttile Disturbances: 1-Very Mild Itch/Numbness Auditory Disturbances: 0-None Visual Disturbances: 0-None Headache: 0-None Present CIWA-Ar Total Score: 16 S COWS - Scale Resting Pulse: 1= [place] 81-100 Sweatin= Chills/Flushing Restless Observation: 3= Extraneous Movement Pupil Size: 0= Normal to Room Light Bone or Joint Aches: 2= Severe Diffuse Aches Runny Nose/ Eye Tearin= Runny Nose/Eyes GI Upset > 30mins: 2= Nausea/Diarrhea Tremor Observation of Outstretched Hands: 2= Slight Tremor Visible Yawning Observation: 0= None Anxiety or Irritability: 2=Irritable/Anxious Goose Flesh Skin: 0=Smooth Skin COWS Score: 15 [facility] Progress Note (SOAP) Subjective: Anxious, sweating, nausea, interrupted sleep Objective: 12/11/17 17:28 Last Vital Signs Temp Pulse Resp BP Pulse Ox 97 F L 97 H 20 105/78 12/11/17 14:17 12/11/17 14:17 12/11/17 14:17 12/11/17 14:17 Laboratory Tests 12/10/17 12/11/17 12/11/17 20:18 08:00 08:00 WBC 5.4 RBC 5.36 Hgb 14.6 D Hct 44.3 D MCV 82.6 MCH 27.2 MCHC 33.0 RDW 15.9 Plt Count 188 MPV 9.7 Sodium 136 Potassium 4.4 Chloride 100 Carbon Dioxide 32 Anion Gap 4 L BUN 15 Creatinine 1.1 Creat Clearance w eGFR > 60 Random Glucose 80 Calcium 9.4 Total Bilirubin 0.6 AST 74 H ALT 138 H Alkaline Phosphatase 85 Total Protein 7.9 Albumin 4.2 D Urine Color Yellow Urine Appearance Clear Urine pH 6.0 Ur Specific [place] 1.024 Urine Protein Negative Urine Glucose (UA) Negative Urine Ketones Negative Urine Blood Negative Urine Nitrite Negative Urine Bilirubin Negative Urine Urobilinogen Negative Ur Leukocyte Esterase Negative RPR Titer HIV 1&2 Antibody Screen HIV P24 Antigen 12/11/17 08:00 WBC RBC Hgb Hct MCV MCH MCHC RDW Plt Count MPV Sodium Potassium Chloride Carbon Dioxide Anion Gap BUN Creatinine Creat Clearance w eGFR Random Glucose Calcium Total Bilirubin AST ALT Alkaline Phosphatase Total Protein Albumin Urine Color Urine Appearance Urine pH Ur Specific [place] Urine Protein Urine Glucose (UA) Urine Ketones Urine Blood Urine Nitrite Urine Bilirubin Urine Urobilinogen Ur Leukocyte Esterase RPR Titer Nonreactive HIV 1&2 Antibody Screen Negative HIV P24 Antigen Negative Labs noted Assessment: 12/11/17 17:29 Withdrawal symptoms Plan: Continue detox
[2017-12-11] MEDS: THIAMINE HCL 100 MG TABLET (FP) PO SCH (22:44)
[2017-12-12 06:28] VITALS: TEMP 97.3
[2017-12-12 09:31] VITALS: BP 117/76; PULSE 86
[2017-12-12] MEDS ORDERED: diazePAM 5 MG TABLET PO SCH (10:00)
[2017-12-12] MEDS ORDERED: METHADONE HCL 5 MG TABLET (FOR DETOX USE ONLY) PO SCH (10:00)
[2017-12-12] MEDS: PRENATAL VITAMINS W/ FOLIC ACID TABLET (FP) PO SCH (10:27)
--- NOTE | 2017-12-12 13:02 | PN ---
[facility] CIWA - CIWA Score Nausea/Vomitin Muscle Tremors: 3 Anxiety: 3 Agitation: 3 Paroxysmal Sweats: 2 Orientation: 0-Oriented Tacttile Disturbances: 0-None Auditory Disturbances: 0-None Visual Disturbances: 0-None Headache: 0-None Present CIWA-Ar Total Score: 14 [facility] COWS - Scale Resting Pulse: 1= [place] 81-100 Sweatin=Flushed/Facial Moisture Restless Observation: 3= Extraneous Movement Pupil Size: 0= Normal to Room Light Bone or Joint Aches: 1= Mild Discomfort Runny Nose/ Eye Tearin= Nasal Congestion GI Upset > 30mins: 2= Nausea/Diarrhea Tremor Observation of Outstretched Hands: 2= Slight Tremor Visible Yawning Observation: 0= None Anxiety or Irritability: 2=Irritable/Anxious Goose Flesh Skin: 0=Smooth Skin COWS Score: 14 [facility] Progress Note (SOAP) Subjective: abd pain Diarrhea sweats Objective: 12/12/17 13:00 Vital Signs Temperature 97.3 F L 12/12/17 06:28 Pulse Rate 86 12/12/17 09:30 Respiratory Rate 18 12/12/17 09:30 Blood Pressure 117/76 12/12/17 09:30 O2 Sat by Pulse Oximetry (%) Assessment: 12/12/17 13:01 withdrawal sx Plan: continue detox
--- NOTE | 2017-12-12 14:04 | DS ---
[facility] Detox Discharge Summary Admission Date: 12/10/17 Discharge Date: 12/12/17 - History Additional Comments: Pt insisted on leave despite repeated education on why he should stay to complete detox. Pt stated he has a job to go to tomorrow, talking loud, angrily and using curse words. Pt leaving AMA - Physical Exam Results Vital Signs: Vital Signs Temperature 97.3 F L 12/12/17 06:28 Pulse Rate 86 12/12/17 09:30 Respiratory Rate 18 12/12/17 09:30 Blood Pressure 117/76 12/12/17 09:30 O2 Sat by Pulse Oximetry (%) Pertinent Admission Physical Exam Findings: see progress note earlier - Medication Discharge Medications: Ambulatory Orders NK [No Known Home Medication] 02/18/16 - Diagnosis (1) Alcohol dependence with uncomplicated withdrawal Status: Acute (2) Opioid dependence with withdrawal Status: Acute (3) Sedative, hypnotic or anxiolytic dependence with withdrawal, uncomplicated Status: Acute (4) Cocaine dependence Status: Chronic Qualifiers: Substance use status: uncomplicated Qualified Code(s): F14.20 - Cocaine dependence, uncomplicated (5) Nicotine dependence Status: Chronic Qualifiers: Nicotine product type: cigarettes Substance use status: uncomplicated Qualified Code(s): F17.210 - Nicotine dependence, cigarettes, uncomplicated (6) Hepatitis C carrier Status: Chronic (7) Drug-induced mood disorder Status: Acute - AMA Did Patient Leave Against Medical Advice: Yes
[2017-12-14] MEDS ORDERED: METHADONE HCL 10 MG TABLET (FOR DETOX USE ONLY) PO SCH (10:00)
[2017-12-14] MEDS ORDERED: diazePAM 5 MG TABLET PO SCH (10:00)
[2017-12-15] MEDS ORDERED: METHADONE HCL 5 MG TABLET (FOR DETOX USE ONLY) PO SCH (06:00)
== END 2017-12-12 11:42 | disposition left against medical advice (07) | DRG 770 ==
LOC: YASAS 12:15 → Y3N 18:20
PROVIDERS: ADMIT Internal Medicine; ATTEND Internal Medicine
PROC: HZ2ZZZZ Detoxification Services for Substance Abuse Treatment (ICD-10-PCS; principal; 2017-12-10)
DX: F11.23 Opioid dependence with withdrawal (principal); F10.230 Alcohol dependence with withdrawal, uncomplicated; F13.230 Sedative, hypnotic or anxiolytic dependence with withdrawal, uncomplicated; F14.20 Cocaine dependence, uncomplicated; F12.20 Cannabis dependence, uncomplicated; F17.210 Nicotine dependence, cigarettes, uncomplicated; F19.24 Other psychoactive substance dependence with psychoactive substance-induced mood disorder; B18.2 Chronic viral hepatitis C; Z59.0 Homelessness
CPT/HCPCS: 36415; 80053; 81003; 85027; 86593; 87389; 93005; 93010